=== PATIENT | female | born 1960 | race Asian ===

== ENCOUNTER 2016-11-27 17:08 | Inpatient (IN) | payer OTHER ==
[~2016-11-27] VITALS: Ht 165.1 cm; Wt 101.2 kg
[2016-11-27] VITALS (8 sets, daily range): BP systolic 132–148; BP diastolic 68–80; TEMP 98.2–98.8; Ht 165.1 cm; Wt 101.2 kg
[~2016-11-27 17:08] MED LIST: ALAWAY0.025 % OP; AMBIEN5 MG PO; AMLO2.5T PO; ASPIRIN ADULT L81 MG PO; AZEL137S; BENZ1TAB43 PO; CETI10TA PO; CHOL100034 PO; DICL1GEL2 TOP; DOCU100C10 PO; GABA300C2 PO; HYDR10TA47 PO; INSU100P SC; INSUINJP SC; KLOR-CON M1010 MEQ PO; KLOR-CON M2020 MEQ PO; LACTSYP31 PO; LIPITOR20 MG PO; LISI10TA11 PO; LITHIUM CARB300 MG PO; LORA0.5T17 PO; METO2.5T3 PO; OMEPRAZOLE20 M1 PO; PALI3TAB PO; RISP1TAB PO; SENNA-TABS8.6 MG PO; SIMV10TA PO; TOPAMAX200 MG PO; TRAM50TA PO; TYLENOL325 MG PO; ZANAFLEX2 MG PO; ZOFRAN8 MG PO
[2016-11-27] MEDS ORDERED: CETI10TA PO (18:28)
[2016-11-27] MEDS ORDERED: CLON0.5T36 PO (18:29)
[2016-11-27] MEDS ORDERED: MAG OXIDE400 M2 PO (18:30)
[2016-11-27] MEDS ORDERED: SIMV10TA PO (18:30)
[2016-11-27] MEDS ORDERED: PROTONIX20 MG PO (18:31)
[2016-11-27] MEDS ORDERED: FIBER LAXATIV0.52 GM OR (18:32)
[2016-11-28] VITALS (16 sets, daily range): BP systolic 123–163; BP diastolic 53–85; TEMP 98.3–98.9
[2016-11-28 06:02] LABS: PLATELET COUNT 307 K/uL (152-353)
[2016-11-28 06:17] LABS: POTASSIUM 3.8 mmol/L (3.6-5.2); SODIUM 139 mmol/L (136-145)
[2016-11-28] MEDS ORDERED: SIMV10TA PO (11:40)
[2017-03-10] MEDS ORDERED: CLARITIN10 M1 PO (03:52)
[2017-03-10] MEDS ORDERED: FLONASE AL50 MCG/ACT NAS (03:54)
[2017-03-10] MEDS ORDERED: CLON0.5T36 PO (03:55)
[2017-03-10] MEDS ORDERED: NEURONTIN 100M100 MG PO (03:58)
[2017-03-10] MEDS ORDERED: SEROQUEL50 MG PO (04:04)
[2017-03-10] MEDS ORDERED: TOPAMAX100 MG PO (04:06)
[2017-03-10] MEDS ORDERED: ACID REDUCER150 M1 PO (04:15)
[2017-03-10] MEDS ORDERED: ONDA4TAB3 PO (04:16)
== END 2016-11-28 16:32 | disposition other institution (70) | DRG 918 ==
LOC: ICU 17:08
PROVIDERS: ADMIT Emergency Medicine
DX: T50.991A Poisoning by other drugs, medicaments and biological substances, accidental (unintentional), initial encounter (principal); F20.89 Other schizophrenia; F31.89 Other bipolar disorder; R41.82 Altered mental status, unspecified; R09.02 Hypoxemia; R06.89 Other abnormalities of breathing; D72.828 Other elevated white blood cell count; E11.9 Type 2 diabetes mellitus without complications; K21.9 Gastro-esophageal reflux disease without esophagitis; J44.9 Chronic obstructive pulmonary disease, unspecified; I10 Essential (primary) hypertension; Y92.238 Other place in hospital as the place of occurrence of the external cause
CPT/HCPCS: 36415; 36600; 80053; 80178; 81000; 82805; 82962; 85027; 85379; 94760; 96372; J0515

== ENCOUNTER 2018-08-30 16:26 | Emergency (ER) | payer OTHER ==
[~2018-08-30] VITALS: Ht 165.1 cm; Wt 96.2 kg
[~2018-08-30 16:26] MED LIST changes: +ACID REDUCER150 M1 PO; +AMLODIPINE BESYLATE PO; +ASPIRIN 81 LOW81 MG PO; +BENZTROPINE2 MG PO; +BISACODYL5 M1 PO; +CLARITIN10 M1 PO; +CLON0.5T36 PO; +DIPH12.553 PO; +DULO60CA2 PO; +FIBER LAXATIV0.52 GM OR; +FLEET ENEMA RE; +FLONASE AL50 MCG/ACT NAS; +GABA100C2 PO; +HYDR-3182 PO; +JANUVIA100 MG PO; +KLOR-CON SPRIN10 MEQ PO; +LAMICTAL150 MG PO; +LAMO100T PO; +LAXATIVE10 MG RE; +LEVEMIR FL100 UNIT/M SC; +LINZESS145 MCG PO; +MAG OXIDE400 M2 PO; +MAGNESIUM-OX400 MG PO; +MELATONIN3 M1 PO; +NAC 600 PO; +NATURAL BALANCE1 SOL OP; +NEURONTIN 100M100 MG PO; +ONDA4TAB3 PO; +OXYGEN NAS; +PHENERGAN 25MG/25 MG IM; +POTA20TA4 PO; +PROTONIX20 MG PO; +QUET25TA2 PO; +RISP50IN IM; +ROBAFEN DM1 M1 PO; +SEROQUEL50 MG PO; +TOPAMAX100 MG PO; +TRAZ50TA36 PO; +VITAMIN D31000 UNIT PO; +ZANTAC300 MG PO; +ZIPR20CA PO; +[UNRECOGNIZED DRUG - CODE] IV; +[UNRECOGNIZED DRUG - CODE] PO
[2018-08-30 16:28] VITALS: BP 124/61; TEMP 97.9
[2018-08-30 17:36] LABS: PLATELET COUNT 293 K/uL (152-353)
[2018-08-30 17:42] LABS: POTASSIUM 3.2 mmol/L (3.6-5.2)
[2018-08-30] MEDS ORDERED: MAGNSUS68 PO (19:26)
[2018-08-30] MEDS ORDERED: FLOVENT DI50 MCG/BLI NAS (19:28)
[2018-08-30] MEDS ORDERED: [UNRECOGNIZED DRUG - CODE] PO (19:30)
[2018-08-30] MEDS ORDERED: TRADJENTA5 M1 PO (19:31)
[2018-08-30] MEDS ORDERED: LITHIUM CARB450 MG PO (19:33)
[2018-08-30] MEDS ORDERED: ARTIFICIAL TEAR1.4 % OPTH (19:36)
[2018-08-30] MEDS ORDERED: RANI150T78 PO (19:37)
[2018-08-30] MEDS ORDERED: CALCIUM OYSTER PO (19:38)
[2018-08-30] MEDS ORDERED: CETIRIZINE10 MG PO (19:40)
[2018-08-30] MEDS ORDERED: MELATONIN3 M1 PO (19:41)
[2018-08-30] MEDS ORDERED: QUETIAPINE50 MG PO (19:42)
[2018-08-30] MEDS ORDERED: BISCOLAX10 MG RE (19:44)
[2018-08-30] MEDS ORDERED: DULCOLAX5 MG PO (19:45)
[2018-08-30] MEDS ORDERED: IBU800 MG PO (19:46)
[2018-08-30] MEDS ORDERED: DIPH25CA90 PO (19:47)
[2018-08-30] MEDS ORDERED: ALUMSUS6 PO (19:47)
[2018-08-30] MEDS ORDERED: TYLENOL325 MG PO (19:48)
[2018-08-30] MEDS ORDERED: PROMETHAZINE25 MG/M2 IM (19:49)
[2018-08-30] MEDS ORDERED: ROBITUSSIN15 MG/5 ML PO (19:50)
[2018-08-30] MEDS ORDERED: KAOPECTATE262 MG/15 PO (19:51)
[2018-08-30] MEDS ORDERED: FLEET ENEMA RE (19:52)
== END 2018-08-30 18:40 | disposition other institution (70) ==
LOC: ED 16:26
DX: R46.89 Other symptoms and signs involving appearance and behavior (principal); D72.828 Other elevated white blood cell count; Z04.6 Encounter for general psychiatric examination, requested by authority
CPT/HCPCS: 36415; 80053; 85027; 93005; 99285